=== PATIENT | male | born 1975 | race Caucasian/White ===

== ENCOUNTER 2020-10-15 11:21 | Outpatient (REF) | payer OTHER, SELFPAY ==
--- NOTE | ~2020-10-15 | XR_ITS ---
EXAMINATION: XR CHEST CLINICAL INFORMATION: Shortness of breath COMPARISON: Portable chest radiograph 04/24/2020 TECHNIQUE: 2 views of the chest were obtained. FINDINGS: The lungs are clear. The vascularity is normal. There is no airspace consolidation, pleural reaction, pneumothorax, or effusion. The heart is normal in size. The hilar and mediastinal contours are unremarkable. There are multilevel degenerative changes thoracic spine. XR/XR chest 2V IMPRESSION: Unremarkable examination.
== END 2020-10-15 11:22 | disposition home or self-care (01) ==
LOC: HO.LAB 11:21
PROVIDERS: Visit Provider Nurse Practitioner Family
DX: R06.02 Shortness of breath (principal); Z20.822 Contact with and (suspected) exposure to COVID-19
CPT/HCPCS: 36415; 71046; U0003; U0005

== ENCOUNTER 2020-10-15 11:26 | Outpatient (REF) | payer OTHER, SELFPAY | END 2020-10-15 11:27 | disposition home or self-care (01) | LOC: HO.HMGCX 11:26 | PROVIDERS: PCP Internal Medicine; Visit Provider Nurse Practitioner Family | DX: Z13.89 Encounter for screening for other disorder (principal) ==

== ENCOUNTER 2021-07-21 11:36 | Outpatient (REF) | payer OTHER, SELFPAY ==
[2021-07-21 12:43] LABS: Influenza A PCR NEGATIVE (Negative); Influenza B PCR NEGATIVE (Negative); Resp Syncy Virus RNA Qual PCR NEGATIVE (Negative); SARS COV2 PCR INHOUSE NEGATIVE (Negative)
== END 2021-07-21 11:37 | disposition home or self-care (01) ==
LOC: HO.LNP 11:36
PROVIDERS: Visit Provider Internal Medicine
DX: Z20.822 Contact with and (suspected) exposure to COVID-19 (principal); R43.9 Unspecified disturbances of smell and taste
CPT/HCPCS: 0241U

== ENCOUNTER 2023-07-14 10:03 | Outpatient (AMB) | payer OTHER, SELFPAY ==
--- NOTE | 2023-07-14 12:40 | MHC.OFFWIV ---
Intake Vital Signs 07/14/23 12:41 Height 5 ft 10 in Weight 300 lb BMI 43.0 BP 130/80 Blood Pressure Location Rt brachial Position Sitting Pulse 98 Pulse Source Pulse Oximeter Temp 96.9 F Temp Source Temporal Artery Scan Pulse Oximetry (%) 99 Oxygen Delivery Method Room Air Intake Visit Reasons: EST/sore throat cough and runny nose([phone]) Intake Note: Pt is here c/o sore throat, cough and runny nose. Patient Tobacco Use Status: Never used Tobacco Allergies prednisone [PREDNISONE] Allergy (Intermediate, Verified 07/14/23 12:40) AGITATION Sulfa (Sulfonamide Antibiotics) [SULFA(SULFONAMIDE ANTIBIOTICS)] Allergy (Mild, Verified 07/14/23 12:40) HIVES Penicillins [PENICILLINS] Allergy (Unknown, Verified 07/14/23 12:40) UNKNOWN oxycodone [OXYCODONE] Adverse Reaction (Severe, Verified 07/14/23 12:40) DIZZINESS Do you need a note to return to daycare/school/sports/work: No HPI HPI Comments History of Present Illness Details This is a 47-year-old male with a past medical history of asthma and bipolar depression presenting for evaluation of nasal congestion, cough, sore throat and dry mouth that he has had for the past 4 days. Patient denies having any fevers, chills, ear pain, shortness of breath, chest pain, abdominal pain or back pain. Patient has not taken any medicat [facility] Social History Patient Tobacco Use Status: Never used Tobacco Review of Systems Const All systems reviewed & are unremarkable except as noted in HPI and below Reports as per HPI, Denies chills and Denies fever(s) Eyes Reports as per HPI ENT Reports no additional complaints, Denies sinus pain, Denies sinus pressure and Denies sore throat Card Reports as per HPI and Denies dyspnea Resp Reports cough and Denies dyspnea Musc Reports no additional complaints Skin/Breast Reports system reviewed and no additional complaints, except as documented Psych Reports no additional complaints Physical Exam Vital Signs: Last Vital Signs Temp 96.9 F 07/14/23 12:41 Pulse 98 07/14/23 12:41 BP 130/80 07/14/23 12:41 Pulse Ox 99 07/14/23 12:41 Oxygen Delivery Method Room Air 07/14/23 12:41 BMI result Body Mass Index 43.0 Const General: cooperative, healthy appearing, comfortable and no acute distress Nutritional Appearance: well nourished Orientation/consciousness: patient oriented x3 Limitations: no limitations HEENT Head: Yes normal to inspection Ears: hearing grossly normal bilaterally, external ears normal, TM's normal bilaterally and EAC's normal General nose exam: Normal external nose present Face and sinus: Yes normal facial exam and Yes sinuses nontender Mouth: Normal oral and palatal mucosa present Teeth and gingiva: dentition normal Throat: Yes posterior oropharynx normal ( There is no edema, erythema or exudates of the posterior oropharynx) Eyes Eyelids: Yes eyelids normal Conjunctivae: conjunctivae normal Sclerae: sclerae normal Corneas: corneas normal EOM: EOMs intact bilaterally Neck Lymphatic: no lymphadenopathy noted Resp Effort & Inspection: normal respiratory effort, able to speak in complete sentences and no respiratory distress Auscultation: clear to auscultation bilaterally Cardio Rate: regular rate Rhythm: regular rhythm Neuro General: patient oriented x3 Psych Appearance: grossly normal Mental Status: mental status grossly normal Insight: Good insight present (Psych) Judgement: Good judgement present (Psych) Assessment & Plan Assessment & Plan (1) Upper respiratory tract infection: Code(s): J06.9 - Acute upper respiratory infection, unspecified Plan: Ibuprofen or Tylenol as needed for sore throat, increase clear fluids daily and follow-up with PCP within 7-10 days if symptoms do not improve. Coding Level of Care Code Est Pt Level 3 (22570) Diagnoses Upper respiratory tract infection J06.9 Time Spent (min) 20
[2023-07-14 12:41] VITALS: BP 130/80; PULSE 98; TEMP 36.1; O2SAT 99; BMI 43.0
== END 2023-07-14 13:32 | disposition home or self-care (01) ==
PROVIDERS: Visit Provider Physician Assistant
DX: J06.9 Acute upper respiratory infection, unspecified (principal)
CPT/HCPCS: 99213